=== PATIENT | female | born 1930 | race Caucasian/White ===

== ENCOUNTER → 2016-10-20 | Outpatient (CLI) | payer MEDICARE, OTHER ==
[~2016-10-20] MED LIST: ACTONEL 35MG TA35 MG PO; ACTONEL150 MG PO; ANTIVERT 12.512.5 MG PO; ARICEPT 5MG PO; ARIMIDEX1 MG PO; ASPIRIN 32325 MG/TAB PO; B-12 250 MCG PO; CALCIUM + D 6001 TA1 PO; CALCIUM CARB W/1 TA1 PO; CENTRUM SILVER1 TA1 PO; COD LIVER OIL 11 SGL PO; FAMVIR 500500 MG/TAB PO; FISH OIL CONC1000 MG PO; FISH OIL1000 MG PO; HCTZ 25MG TAB25 MG PO; HCTZ 25MG25 MG PO; HCTZ12.5TAB PO; KLONOPIN 1MG1 MG PO; LOPRESSOR 225 MG/TAB PO; NAMENDA XR PO; NATURE'S BLE1000 MCG PO; PAXIL 10MG10 MG PO; PEPCID 20MG TAB20 MG PO; VITAMIN B COMPL1 SGL PO; VITAMIN B121000 MCG PO; VITAMIN D 1001000 IU PO; VITAMIN D32000 I1 PO; ZOVIRAX5% TP
== END ==
LOC: MC.RAD 10:57
DX: Z12.31 Encounter for screening mammogram for malignant neoplasm of breast (principal); D24.2 Benign neoplasm of left breast; D24.1 Benign neoplasm of right breast; Z85.3 Personal history of malignant neoplasm of breast; Z80.3 Family history of malignant neoplasm of breast

== ENCOUNTER → 2017-10-31 | Outpatient (CLI) | payer MEDICARE, OTHER | LOC: MC.RAD 10:37 | DX: Z12.31 Encounter for screening mammogram for malignant neoplasm of breast (principal) ==

== ENCOUNTER → 2017-11-28 | Outpatient (CLI) | payer MEDICARE, OTHER | LOC: MC.RAD 09:52 | DX: N63.11 Unspecified lump in the right breast, upper outer quadrant (principal); Z98.890 Other specified postprocedural states ==